=== PATIENT | female | born 1950 | race Caucasian/White ===

== ENCOUNTER 2018-07-14 20:01 | Emergency (ER) | payer MEDICAID ==
[~2018-07-14] VITALS: Wt 76.1 kg
--- NOTE | 2018-07-15 01:48 | ERD ---
ER Documentation Chief Complaint Chief Complaint HEMATURIA, X'S 2 DAYS, R LOWER BACK PAIN RADIATING DOWN LEG HPI This is a 68-year-old female who is here for hematuria. The patient states that she has had 2 days of gross hematuria off-and-on there is no gross blood just red tinged urine. No dysuria no frequency. She has no back pain but does have chronic right leg sciatica. No fever no rectal bleeding no bleeding from the vagina. ROS All systems reviewed and are negative except as per history of present illness. Allergies Allergies: Coded Allergies: No Known Allergy (Unverified , 07/15/18) PMhx/Soc History of Surgery: Yes (HYSTERECTOMY) Anesthesia Reaction: No Hx Neurological Disorder: No Hx Respiratory Disorders: No Hx Cardiac Disorders: Yes (HTN) Hx Psychiatric Problems: No Hx Miscellaneous Medical Probl: No Hx Alcohol Use: No Hx Substance Use: No Hx Tobacco Use: No Smoking Status: Never smoker FmHx Family History: No coronary disease Physical Exam Vitals Vital Signs Date Temp Pulse Resp B/P (MAP) Pulse Ox O2 O2 Flow FiO2 Time Delivery Rate 07/15/18 64 19 153/84 95 Room Air 01:00 (107) 07/14/18 97.9 78 18 209/102 98 20:35 (137) Physical Exam Const: Well-developed, well-nourished Head: Atraumatic, normocephalic Eyes: Normal Conjunctiva, PERRLA, EOMI, normal sclera, no nystagmus ENT: Normal External Ears, Nose and Mouth, moist mucus membranes. Neck: Full range of motion. No meningismus, no lymphadenopathy. Resp: Clear to auscultation bilaterally, no wheezing, rhonchi, rales Cardio: Regular rate and rhythm, no murmurs, S1 S2 present Abd: Soft, non tender x 4, non distended. Normal bowel sounds, no guarding or rebound, no pulsitile abdominal masses or bruits Skin: No petechiae or rashes, no ecchymosis , no maculopapular rash Back: Tender right buttocks Ext: No cyanosis, or edema, FROM x 4, normal inspection, n eurovascularly intact x 4 Neur: Awake and alert, STR 5/5 x 4, sensation intact x 4, no focal f indings, cerebellum intact Psych: Normal Mood and Affect Result Diagram: 07/15/189907/15/1899 Results 24 hrs Laboratory Tests Test 07/15/18 01:00 White Blood Count 5.2 10^3/ul Red Blood Count 4.27 10^6/ul Hemoglobin 12.2 g/dl Hematocrit 38.2 % Mean Corpuscular Volume 89.5 fl Mean Corpuscular Hemoglobin 28.6 pg Mean Corpuscular Hemoglobin Concent 31.9 g/dl Red Cell Distribution Width 14.4 % Platelet Count 186 10^3/UL Mean Platelet Volume 9.8 fl Immature Granulocytes % 0.600 % Neutrophils % 46.7 % Lymphocytes % 38.4 % Monocytes % 8.5 % Eosinophils % 5.0 % Basophils % 0.8 % Nucleated Red Blood Cells % 0.0 /100WBC Immature Granulocytes # 0.030 10^3/ul Neutrophils # 2.4 10^3/ul Lymphocytes # 2.0 10^3/ul Monocytes # 0.4 10^3/ul Eosinophils # 0.3 10^3/ul Basophils # 0.0 10^3/ul Nucleated Red Blood Cells # 0.0 10^3/ul Urine Color JANEY Urine Clarity SLIGHTLY CLOUDY Urine pH 5.0 Urine Specific [place] 1.028 Urine Ketones TRACE mg/dL Urine Nitrite POSITIVE mg/dL Urine Bilirubin 1+ mg/dL Urine Urobilinogen 1+ mg/dL Urine Leukocyte Esterase 2+ Alexx/ul Urine Microscopic RBC 68 /HPF Urine Microscopic WBC 44 /HPF Urine Squamous Epithelial Cells FEW /HPF Urine Bacteria MODERATE /HPF Urine Mucus MANY /HPF Urine Hemoglobin 2+ mg/dL Urine Glucose NEGATIVE mg/dL Urine Total Protein 1+ mg/dl Sodium Level 144 mmol/L Potassium Level 4.5 mmol/L Chloride Level 110 mmol/L Carbon Dioxide Level 27 mmol/L Anion Gap 7 Blood Urea Nitrogen 17 mg/dl Creatinine 0.73 mg/dl Est Glomerular Filtrat Rate mL/min > 60 mL/min Glucose Level 113 mg/dl Calcium Level 9.8 mg/dl Current Medications Medications Dose Sig/Nicolasa Start Time Status Last (Trade) Ordered Route PRN Stop Time Admin Dose Reason Admin IV Flush 10 ml STK-MED 07/15/18 DC 07/15/18 (NS 10 ml) ONCE .ROUTE 01:58 02:28 07/15/18 01:59 Sodium 100 ml @ ud STK-MED 07/15/18 DC 07/15/18 Chloride ONCE .ROUTE 01:58 02:28 07/15/18 01:59 Iohexol 150 ml STK-MED 07/15/18 DC 07/15/18 (Omnipaque ONCE .ROUTE 01:58 02:28 300mg/ ml) 07/15/18 01:59 Procedures/MDM PROCEDURE: CT Abdomen and Pelvis With Intravenous Contrast CLINICAL INDICATION: painless hematuria TECHNIQUE: Axial computed tomography images of the abdomen and pelvis with intravenous contrast. Sagittal and coronal reformatted images were created and reviewed. CTDIvol (mGy) = <13.88 mGy>; total DLP (mGy-cm) = <796.19 mGy.cm> This CT exam was performed using one or more of the following dose reduction techniques: automated exposure control, adjustment of the mA and/or kV according to patient size, and/or use of iterative reconstruction technique. DICOM images are avai lable. CONTRAST: 100 mL of Omnipaque-300 was administered intravenously. COMPARISON: None FINDINGS: LUNG BASES: Slight bibasilar atalectasis. ABDOMEN: LIVER: Hepatomegaly, 23.2 cm. The liver is lobulated in contour suggesting possible cirrhosis. No definite focal mass. Patent portal vein. GALLBLADDER AND BILE DUCTS: Clips are seen from prior cholecystectomy. No biliary ductal dilatation. PANCREAS: Unremarkable No mass. No ductal dilation. SPLEEN: Splenomegaly, 15.4 cm. ADRENALS: Sub centimeter tiny probable adrenal adenomas. No specific follow- up needed. KIDNEYS AND URETERS: Unremarkable No solid mass. No hydronephrosis. STOMACH AND BOWEL: Unremarkable No evidence for small bowel obstruction, free air, or abscess. PELVIS: APPENDIX: The appendix is not seen with certainty. No pericecal inflammatory change is seen. BLADDER: Mild wall prominence of the urinary bladder may be due to under- distension. REPRODUCTIVE: Prior hysterectomy. The ovaries are not identified. ABDOMEN and PELVIS: INTRAPERITONEAL SPACE: Unremarkable No free air. No significant fluid collection. BONES/JOINTS: Mild degenerative change of the spine. SOFT TISSUES: Unremarkable VASCULATURE: Slightly ectatic distal thoracic aorta. Mild atherosclerotic change of the abdominal vasculature. No evidence for aneurysm. LYMPH NODES: Multiple small retroperitoneal and inguinal lymph nodes. No luis enrique adenopathy. OTHER FINDINGS: IMPRESSION: Hepatomegaly and probable cirrhosis. Splenomegaly. Patent portal vein. RPTAT: HLBE Aida Belle, Physician Date Time Electronically viewed and signed by Aida Belle, Physician on 07/15/2018 02:54 LE/ CC: MARISABEL BELL DO [id number] The patient has a negative CT scan with contrast of the abdomen for any renal mass causing hematuria she does have a urinary tract infection and likely has hemorrhagic cystitis. Gave him a copy of your CT scan to follow-up on the liver. Urine cultures been sent I will discharge home with Macrobid Departure Diagnosis: Primary Impression: Hemorrhagic cystitis Condition: Stable MARISABEL BELL DO Jul 15, 2018 01:48
[2018-07-15] MEDS ORDERED: IOHEXOL 300MG/ML 150 ML BTL ONE (01:58)
[2018-07-15] MEDS ORDERED: SOD CHLORIDE 0.9% 100 ML ONE (01:58)
[2018-07-15] MEDS ORDERED: NITR-58 PO (03:05)
[2018-07-15 03:35] VITALS: BP 173/90; PULSE 71; RESP 18
[2018-07-15] MEDS ORDERED: NICARDipine HCL 30 MG CAPSULE PO ONE (04:00)
== END 2018-07-15 03:35 | disposition home or self-care (01) ==
LOC: E/R 20:01
DX: N30.91 Cystitis, unspecified with hematuria (principal); I10 Essential (primary) hypertension
CPT/HCPCS: 36415; 74177; 80048; 81001; 85025; 87086; Q9967; Z7502; Z7610

== ENCOUNTER 2018-12-15 15:36 | Emergency (ER) | payer MEDICAID ==
[~2018-12-15] VITALS: Ht 167.6 cm; Wt 69.7 kg
[~2018-12-15 15:36] MED LIST: IBUP-1561 PO; NITR-58 PO
[2018-12-15 15:41] VITALS: Ht 167.6 cm; Wt 69.7 kg
[2018-12-15 18:05] VITALS: BP 146/78; PULSE 79; RESP 18
--- NOTE | 2018-12-22 01:51 | ERD ---
ER Documentation Chief Complaint Chief Complaint left leg pain s/p fall on concrete 3 days ago HPI 68-year-old female presents to the emergency department complaining of intermittent left knee pain after a fall 3 days ago. She states she tripped on a piece of wood and fell directly on the left knee. Pain is 9/10 severity, constant, associated with swelling, alleviated with ice and Advil. No other symptoms reported currently. Patient denies any head injury or loss of consciousness. ROS All systems reviewed and are negative except as per history of present illness. Medications Home Meds Active Scripts Ibuprofen* (Motrin*) 400 Mg Tab, 400 MG PO Q6, #30 TAB Prov:MERARI PETERSON PA-C 12/15/18 Nitrofurantoin Monohyd Macrocr* (Macrobid*) 100 Mg Capsr, 100 MG PO BID for 14 Days, CAP Prov:MARISABEL BELL DO 07/15/18 Allergies Allergies: Coded Allergies: No Known Allergy (Unverified , 07/15/18) PMhx/Soc History of Surgery: Yes (HYSTERECTOMY) Anesthesia Reaction: No Hx Neurological Disorder: No Hx Respiratory Disorders: No Hx Cardiac Disorders: Yes (HTN) Hx Psychiatric Problems: No Hx Miscellaneous Medical Probl: No Hx Alcohol Use: No Hx Substance Use: No Hx Tobacco Use: No Smoking Status: Never smoker Physical Exam Physical Exam Const: No acute distress Head: Atraumatic Eyes: Normal Conjunctiva ENT: Normal External Ears, Nose and Mouth. Neck: Full range of motion. No meningismus. Resp: Clear to auscultation bilaterally Cardio: Regular rate and rhythm, no murmurs Abd: Soft, non tender, non distended. Normal bowel sounds Skin: No petechiae or rashes Back: No midline or flank tenderness Ext: No cyanosis, or edema Neur: Awake and alert Psych: Normal Mood and Affect Results 24 hrs [place] [address] Radiology Main Line: [phone] DIAGNOSTIC IMAGING REPORT Patient: LYNSEY GRACE : 1950 Age: 68 Sex: F MR #: [id number] DOS: 12/15/18 0000 Ordering MD: MERARI PETERSON PA-C Location: [facility] Room/Bed: PROCEDURE: XR Knee. CLINICAL INDICATION: Pain after fall TECHNIQUE: Three views of the left knee are available for review. COMPARISON: None available FINDINGS: There is no acute fracture or dislocation. There is mild to moderate joint space narrowing of the medial compartment with mild osseous spurring. There is minimal joint space narrowing of the lateral and patellofemoral compartments. Bones are osteopenic. A [id number] joint effusion is present. The soft tissues are unremarkable. RPTAT: ZZ IMPRESSION: 1. Moderate to large joint effusion without a discrete fracture. A follow-up MRI may be helpful to evaluate for occult bony injury or internal derangement. 2. Mild to moderate medial compartment osteoarthrosis. 3. Osteopenia. .Mable Hebert MD, MD Date Time Electronically viewed and signed by .Mable Hebert MD, MD on 12/15/2018 17:03 .T/ CC: MERARI PETERSON PA-C [phone] Procedures/MDM 68-year-old female presents emergency department with signs and symptoms most consistent with likely omental or tendon injury of the left knee. There is no obvious fracture on x-ray interpreted by the radiologist. Patient required knee immobilizer for immobilization of possible occult fracture.Splint Assessment: Neurovascularly intact post splint placement with good fit. Patient's extremity symptoms have stabilized while they have been evaluated in the department and are appropriate for outpatient follow up. No evidence of compartment syndrome, neurologic injury, vascular injury, open joint, open fracture, tendon laceration, or foreign body. No evidence of life- threatening pathology at time of discharge. Pt/family in agreement with discharge plan/diagnosis. Pt/family advised to return immediately with any new or worsening symptoms. Follow-up with primary care physician within the next 1- 2 days. Departure Diagnosis: Primary Impression: Effusion, left knee Condition: Fair Patient Instructions: Knee Effusion Referrals: [facility] Ur[facility] 7 a.m.- 11 p.m. Every Day of the Week NO APPOINTMENT OR AUTHORIZATION NEEDED SO [facility] Hours: Fri-Fri 9:00 AM - 5:00 PM Additional Instructions: SPECIALIST: YOU HAVE A MEDICAL CONDITION WHICH REQUIRES YOU TO SEE A SPECIALIST WITHIN THE NEXT 1-2 DAYS. PLEASE FOLLOW UP WITH YOUR PRIMARY PHYSICIAN FOR REFFERAL.IF YOU DO NOT HAVE A PRIMARY CARE PHYSICIAN AND/OR YOU CAN NOT AFFORD TO SEE A PHYSICIAN THE FOLLOWING RESOURCES HAVE BEEN SUPPLIED TO YOU. IT IS YOUR RESPONSIBILITY TO BE SEEN BY THE SPECIALIST: ORTHOPED[facility] MERARI PETERSON PA-C Dec 22, 2018 01:51
== END 2018-12-15 18:07 | disposition home or self-care (01) ==
LOC: FTE 15:36
DX: M25.462 Effusion, left knee (principal); I10 Essential (primary) hypertension
CPT/HCPCS: 29505; 73562; Z7502; Z7610